=== PATIENT | female | born 1980 | race Caucasian/White ===

== ENCOUNTER 2019-11-08 14:24 | Emergency (ER) | payer OTHER ==
[~2019-11-08] VITALS: Ht 177.8 cm; Wt 92.6 kg
--- NOTE | 2019-11-08 14:58 | NUR ---
PT STATED BLOOD SUGAR HAS BEEN [phone] X 24 HOURS, INSULIN PUMP NOT WORKING. PRESENTS WITH NAUSEA, VOMITING AND ANXIOUS, THIRSTY. TRIAGE FSBS 396. PT IN BED WITH CONT PROPERTY FIELD ADJUSTER, CONT S[PO2, BP Q 30 MIN, SIDE RAILS UP X2, CALL LIGHT IN REACH. WENT OVER PLAN OF CARE FROM ORDER LIST AGREES TO POC.
[2019-11-08] MEDS ORDERED: SODIUM CHLORIDE FLUSH 10ML SYR IVF ONE (15:00)
[2019-11-08] MEDS ORDERED: ONDANSETRON 2MG/ML, 2ML ONE ×2 (15:00→17:20)
[2019-11-08] MEDS ORDERED: ONDANSETRON 2MG/ML, 2ML IVPush ONE ×2 (15:00→17:30)
[2019-11-08] MEDS ORDERED: SODIUM CHLORIDE 0.9% 1,000ML IVBOLUS ONE ×3 (15:00→17:30)
[2019-11-08 15:08] LABS: PH, VENOUS 7.184 pH (7.320-7.420)
[2019-11-08 15:11] LABS: BASOPHILS # (AUTO) 0.03 x10^3/uL (0-0.1); BASOPHILS % (AUTO) 0 % (0-1); EOSINOPHILS # (AUTO) 0.05 x10^3/uL (0-0.4); EOSINOPHILS % (AUTO) 1 % (1-7); LYMPHOCYTES # (AUTO) 1.95 x10^3/uL (1-3.4); LYMPHOCYTES % (AUTO) 22 % (22-44); MD NO; MEAN CORPUSCULAR HEMOGLOBIN 28.9 pg (27.0-34.8); MEAN CORPUSCULAR HGB CONC 32.3 g/dL (32.4-35.8); MEAN CORPUSCULAR VOLUME 89.4 fL (80-100); MEAN PLATELET VOLUME 7.2 fL (7.4-10.4); MONOCYTES % (AUTO) 6 % (2-9); NEUTROPHILS # (AUTO) 6.48 x10^3/uL (1.8-6.8); NEUTROPHILS % (AUTO) 72 % (42-75); PLATELET COUNT 434 x10^3/uL (130-400); RED BLOOD COUNT 4.57 x10^6/uL (3.82-5.3); RED CELL DISTRIBUTION WIDTH 13.3 % (9.6-15.2)
--- NOTE | 2019-11-08 15:19 | NUR ---
URINE WALKED TO LAB
[2019-11-08 15:21] LABS: ALBUMIN 3.8 g/dL (3.4-5.0); ANION GAP 14 mmol/L (5-15); CHLORIDE 100 mmol/L (98-107); CREATININE 1.03 mg/dL (0.55-1.02)
[2019-11-08 15:23] LABS: HCG UR SG 1.031 (1.003-1.030); MICROSCOPIC NOT IND
[2019-11-08 15:32] LABS: ACETONE, SERUM Large (80mg/dL) (Negative)
[2019-11-08] MEDS ORDERED: INSU100C INLINE (16:08)
[2019-11-08] MEDS ORDERED: DULO20CA45 PO (16:08)
[2019-11-08] MEDS ORDERED: INSULIN REGULAR 100 UNITS/ML, 3ML VIAL IVPush ONE (17:00)
[2019-11-08] MEDS ORDERED: ACETAMINOPHEN 325 MG TABLET ONE (17:20)
[2019-11-08] MEDS ORDERED: ACETAMINOPHEN 325 MG TABLET PO ONE (17:30)
[2019-11-08] MEDS ORDERED: PROMETHAZINE 25 MG/ML, 1ML ONE (17:59)
[2019-11-08] MEDS ORDERED: PROMETHAZINE 25 MG/ML, 1ML IM ONE (18:00)
[2019-11-08 18:21] LABS: ALBUMIN 3.2 g/dL (3.4-5.0); ANION GAP 13 mmol/L (5-15); CALCIUM 7.7 mg/dL (8.5-10.1); CHLORIDE 109 mmol/L (98-107); CREATININE 1.01 mg/dL (0.55-1.02)
[2019-11-08 18:29] VITALS: BP 124/74
[2019-11-08 18:51] LABS: PH, VENOUS 7.263 pH (7.320-7.420)
--- NOTE | 2019-11-08 18:55 | NUR ---
Received report from Magdaleno LANDRUM.
== END 2019-11-08 19:36 | disposition home or self-care (01) ==
LOC: ED 16:23
DX: E11.65 Type 2 diabetes mellitus with hyperglycemia (principal); R11.2 Nausea with vomiting, unspecified; F41.9 Anxiety disorder, unspecified; Z96.41 Presence of insulin pump (external) (internal)
CPT/HCPCS: 36415; 80048; 81003; 81025; 82010; 82040; 82803; 82962; 85025; 96361; 96372; 96374; 96375; 96376; 99284; J1815; J2405; J2550; J7030